=== PATIENT | female | born 2000 | race Caucasian/White ===

== ENCOUNTER 2022-01-30 13:20 | Emergency (ER) | payer BC, OTHER ==
[2022-01-30 14:19] LABS: HEMOGLOBIN 14.3 gm/dl (12.3-15.3); RED BLOOD COUNT 5.14 M/UL (4.00-5.10); WHITE BLOOD COUNT 7.9 K/UL (4.5-11.0)
[2022-01-30 14:58] LABS: BUN/CREATININE RATIO 12 (0-10)
== END 2022-01-30 15:52 | disposition home or self-care (01) ==
LOC: ER1 13:20
PROVIDERS: Student in an Organized Health Care Education/Training Program
DX: O03.4 Incomplete spontaneous abortion without complication (principal)
CPT/HCPCS: 76815; 80048; 81001; 84702; 85025; 86900; 86901; 99284